=== PATIENT | female | born 2000 | race Caucasian/White ===

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

== ENCOUNTER 2022-01-24 08:45 | Emergency (ER) | payer MEDICAID ==
[~2022-01-24] VITALS: Ht 167.6 cm; Wt 63.6 kg
[2022-01-24 08:50] VITALS: TEMP 97.6
[2022-01-24] MEDS ORDERED: MEDROL 4MG DOSPA4 MG PO (09:28)
[2022-01-24] MEDS ORDERED: NORCO 325 MG-51 TAB PO (09:28)
[2022-01-24 09:41] VITALS: BP 131/70; PULSE 77
== END 2022-01-24 09:41 | disposition home or self-care (01) ==
LOC: COL.ER 08:45
DX: M54.50 Low back pain, unspecified (principal); Z87.39 Personal history of other diseases of the musculoskeletal system and connective tissue

== ENCOUNTER 2022-01-29 11:55 | Emergency (ER) | payer MEDICAID ==
[~2022-01-29] VITALS: Ht 167.6 cm; Wt 63.6 kg
[~2022-01-29 11:55] MED LIST changes: +MEDROL 4MG DOSPA4 MG PO; +NORCO 325 MG-51 TAB PO
[2022-01-29 13:30] VITALS: BP 123/68; PULSE 90; TEMP 99
== END 2022-01-29 13:34 | disposition home or self-care (01) ==
LOC: COL.ER 11:55
DX: U07.1 COVID-19 (principal)

== ENCOUNTER 2022-02-14 04:19 | Emergency (ER) | payer MEDICAID ==
[~2022-02-14] VITALS: Ht 167.6 cm; Wt 63.6 kg
[2022-02-14] MEDS ORDERED: VOLTAREN-XR100 MG PO (04:23)
[2022-02-14 04:25] VITALS: TEMP 98
[2022-02-14 04:47] LABS: COLLECTION METHOD CLEAN CATCH
[2022-02-14 04:50] LABS: BASO # 0.1 K/mm3 (0.0-0.2); EOS # 0.2 K/mm3 (0.0-0.7); EOS % 1.9 % (0.0-4.0); HEMATOCRIT 37.9 % (35.0-45.0); LYMPH # 2.8 K/mm3 (1.2-3.4); LYMPH % 25.7 % (20.0-51.0); MEAN CELL VOLUME 85 fl (80.0-95.0); MEAN CORPUSCULAR HEMOGLOBIN 27 pg (26-32); MEAN CORPUSCULAR HGB CONC 32 g/dl (33.0-37.0); MEAN PLATELET VOLUME 10.2 fl (7.4-10.4); MONO # 0.8 K/mm3 (0.1-0.6); PLATELET COUNT 351 K/mm3 (130-400); RED BLOOD COUNT 4.46 M/mm3 (4.10-5.30); REDCELL DISTRIBUTION WIDTH-CV 13.2 % (11.5-14.5)
[2022-02-14 04:52] LABS: MUCOUS Present (NOT PRESENT); PH 5 (5-8); URINE APPEARANCE Hazy (CLEAR/HAZY); URINE BACTERIA Rare /hpf (NONE SEEN); URINE BLOOD Negative (NEGATIVE); URINE COLOR Yellow (YELLOW); URINE GLUCOSE Negative (NEGATIVE); URINE KETONE Negative (NEGATIVE); URINE NITRATE Negative (NEGATIVE); URINE PROTEIN(semi-quant) Negative (NEGATIVE); URINE RBC 0-2 /hpf (0-2); URINE UROBILINOGEN Negative (NEGATIVE)
[2022-02-14 05:09] LABS: ALANINE AMINOTRANSFERASE 14 U/L (0-55); ALBUMIN 4.6 gm/dL (3.5-5.0); ALKALINE PHOSPHATASE 75 U/L (40-150); ANION GAP 13 mmol/L (7-16); AST,SGOT 17 U/L (5-34); BILIRUBIN,TOTAL 0.5 mg/dL (0.2-1.2); BLOOD UREA NITROGEN 13 mg/dL (8-21); CALCIUM 9.6 mg/dL (8.4-10.2); CARBON DIOXIDE 20 mmol/L (22-29); CHLORIDE 106 mmol/L (98-107); CREATININE, serum 0.85 mg/dL (0.57-1.11); GLUCOSE 95 mg/dL (70-99); POTASSIUM 4.2 mmol/L (3.5-4.5); SODIUM 139 mmol/L (136-145); TOTAL PROTEIN 7.8 gm/dL (6.2-8.1)
[2022-02-14 05:14] LABS: ACETAMINOPHEN < 1.0 ug/mL (10-30); ALCOHOL(ethanol),MEDICAL < 10 mg/dL (0-10); SALICYLATE < 5.0 mg/dL (15.0-30.0)
[2022-02-14 05:29] LABS: TSH w REFLEX 1.617 uIU/mL (0.350-4.940)
[2022-02-14 05:49] LABS: TRICYCLIC ANTIDEPRESS URINE NEGATIVE
[2022-02-14 13:15] VITALS: BP 119/78; PULSE 77
== END 2022-02-14 13:20 | disposition home or self-care (01) ==
LOC: COL.ER 04:19
PROVIDERS: Emergency Medicine
DX: T42.8X2A Poisoning by antiparkinsonism drugs and other central muscle-tone depressants, intentional self-harm, initial encounter (principal)

== ENCOUNTER 2022-03-23 10:30 | Outpatient (RCR) | payer MEDICAID ==
[~2022-03-23 10:30] MED LIST changes: +VOLTAREN-XR100 MG PO
== END 2022-03-24 | disposition home or self-care (01) ==
LOC: MKS.ESL.PT
DX: M41.9 Scoliosis, unspecified (principal); M54.50 Low back pain, unspecified